=== PATIENT | male | born 1940 | race Caucasian/White ===

== ENCOUNTER 2018-03-31 08:55 | Inpatient (IN) ==
[2018-03-31] MEDS ORDERED: ASPIRIN PO ONE (09:25)
[2018-03-31] MEDS ORDERED: G.I. COCKTAIL PO ONE (09:25)
--- NOTE | 2018-03-31 09:31 | PROVIDER DOCUMENTATION ---
HPI-Chest Pain - General Chief Complaint: Nausea/Vomiting Stated Complaint: HEARTBURN/CHEST PAIN/COUGHING Time Seen by Provider: 03/31/18 09:13 Source: patient, family Allergies/Adverse Reactions: Patient Allergies Allergy/AdvReac Type Severity Reaction Status Date / Time ciprofloxacin [From Cipro] Allergy Unknown Verified 03/31/18 10:16 Latex, Natural Rubber Allergy Unknown Verified 03/31/18 10:16 promethazine [From Phenergan] Allergy Unknown Verified 03/31/18 10:16 - History of Present Illness-CP Nature of Presenting Problem: This pt presents today c complaints of atypical chest pains that began this morning. He states that it feels like "very bad reflux." He reports that it began shortly after he woke up and his been getting persistently worse since that time. He reports that he keeps "spitting up acid". He states that he had a similar episode around 2 years and describes a story that sounds like he may have had an esophageal food bolus (reports symptoms started after eating some chicken) but reports that the pain is worse today. Denies any shortness of breath. No other issues or complaints. Denies any previous cardiac hx. Location: reports: substernal Chest Pain Radiation: reports: epigastric Quality of Pain: reports: burning Severity in ED: moderate Onset/Duration: 1-3 hours ago Timing: still present, getting worse Modifying Factors: improves with: vomiting ("acid burps") Associated Symptoms: reports: heartburn Nitro Today/Relief: no nitro taken today Aspirin Treatment Today: 325 mg x 1, provided by ED Similar Symptoms Previously?: Yes Recently Seen Here or By Another Healthcare Provider: No Review of Systems - Adult - REVIEW OF SYSTEMS - ADULT Constitutional: reports: no symptoms reported. denies: chills, fever Eyes: reports: no symptoms reported. denies: discharge, dry eyes Ears, Nose, Mouth & Throat: reports: no symptoms reported. denies: ear discharge, ear pain Cardiovascular: reports: chest pain Respiratory: reports: no symptoms reported. denies: chronic cough, cough Gastrointestinal: reports: see HPI, abdominal pain (epigastric) Genitourinary: reports: no symptoms reported. denies: dysuria, discharge Musculoskeletal: reports: no symptoms reported. denies: bone pain, back pain Integumentary: reports: no symptoms reported. denies: hives, hair loss Neurological: reports: no symptoms reported. denies: ataxia, dizziness/vertigo Psychiatric: reports: no symptoms reported Endocrine: reports: no symptoms reported Hematologic/Lymphatic: reports: no symptoms reported Allergic/Immunologic: reports: no symptoms reported All Other Systems: Reviewed and Negative Past History - Adult - PAST MEDICAL HISTORY-ADULT Review of Records: reports: Old Records Reviewed, Nursing Assessment Review, Medications Reviewed, Social history reviewed & non-contributory. Major Childhood Illnesses: reports: denies history Cardiovascular: reports: HTN Respiratory: reports: denies history Gastrointestinal: reports: GERD Obstetrical/Gynecological: reports: denies history Genitourinary: reports: denies history Musculoskeletal: reports: denies history Neurological: reports: denies history Endocrine/Immune: reports: denies history Other Conditions: reports: denies history - IMMUNIZATION STATUS Childhood Immunizations: See Nurse Assessment Flu Vaccine: See Nurse Assessment - FAMILY HISTORY Family History: reviewed, not pertinent Physical Exam-General - PHYSICAL EXAM-ADULT Initial Vital Signs Reviewed: Yes - CONSTITUTIONAL General Appearance: alert, mild distress (discomfort) - EYES Eyes: PERRL/EOMI, pink conjunctivae - HEAD, EARS, NOSE, MOUTH & THROAT HENMT: normocephalic/atraumatic, moist mucous membranes, normal ENT inspection - NECK Neck: supple, normal inspection - RESPIRATORY Respiratory: chest non-tender, lungs clear, normal breath sounds, no pleuratic chest pain, no respiratory distress, no accessory muscle use. negative: respiratory distress, decreased breath sounds, accessory muscle use - CARDIOVASCULAR Cardiovascular: normal peripheral pulses, regular rate, rhythm. negative: bradycardia, tachycardia - GASTROINTESTINAL (ABDOMEN) Abdominal Exam: normal bowel sounds, non tender, soft, no organomegaly, no pulsatile mass. negative: distended, guarding, rigid, rebound, tenderness - LYMPHATIC Lymphatic: no adenopathy - MUSCULOSKELETAL Back Exam: normal inspection, no CVA tenderness, no vertebral tenderness Extremity: normal range of motion, non-tender - SKIN Integumentary: normal color, normal turgor, warm/dry - NEUROLOGIC Neurologic: grossly normal, no motor/sensory deficits. negative: facial droop, focal weakness, motor weakness, sensory deficit - PSYCHIATRIC Psych/Mental Status: normal mood/affect, normal thought content, normal thought process, oriented x 3 Progress - PLAN OF CARE/RESULTS Progress/Plan/Lab Results: Vital Signs - 8 hr 03/31/18 08:59 Temperature 97.6 F Pulse Rate 64 Respiratory Rate 18 Blood Pressure 153/75 O2 Sat by Pulse Oximetry 100 Laboratory Results - last 24 hr 03/31/18 03/31/18 03/31/18 09:03 09:03 09:03 WBC RBC Hgb Hct MCV MCH MCHC RDW Std Deviation Plt Count MPV Immature Gran % (Auto) Neut % (Auto) Lymph % (Auto) Glenn % (Auto) Eos % (Auto) Baso % (Auto) Immature Gran # (Auto) Neut # (Auto) Lymph # (Auto) Glenn # (Auto) Eos # (Auto) Baso # (Auto) PT 12.6 INR 0.87 PTT (Actin FS) 24.0 Sodium Potassium Chloride Carbon Dioxide Anion Gap BUN Creatinine Estimated GFR/1.73 m2 BUN/Creatinine Ratio Glucose Calculated Osmolality Calcium Total Bilirubin AST ALT Alkaline Phosphatase Creatine Kinase 272 H Creatine Kinase Index 2.1 CK-MB (CK-2) 5.67 H Troponin T < 0.010 Stj-M-Cuxhxqwoagq Pept Total Protein Albumin Globulin Albumin/Globulin Ratio Lipase 03/31/18 03/31/18 03/31/18 09:03 09:03 09:38 WBC 8.87 RBC 4.97 Hgb 15.1 Hct 45.0 MCV 90.5 MCH 30.4 MCHC 33.6 RDW Std Deviation 13.6 Plt Count 231 MPV 11.3 H Immature Gran % (Auto) 0.2 Neut % (Auto) 69.4 Lymph % (Auto) 15.2 L Glenn % (Auto) 8.8 Eos % (Auto) 5.4 Baso % (Auto) 1.0 H Immature Gran # (Auto) 0.02 Neut # (Auto) 6.15 Lymph # (Auto) 1.35 Glenn # (Auto) 0.78 H Eos # (Auto) 0.48 Baso # (Auto) 0.09 PT INR PTT (Actin FS) Sodium 145 Potassium 4.6 Chloride 112 H Carbon Dioxide 21 L Anion Gap 12 BUN 15 Creatinine 1.0 Estimated GFR/1.73 m2 > 60 BUN/Creatinine Ratio 15 Glucose 96 Calculated Osmolality 289 Calcium 8.5 L Total Bilirubin 0.35 AST 19 ALT 18 Alkaline Phosphatase 95 Creatine Kinase Creatine Kinase Index CK-MB (CK-2) Troponin T Dpf-X-Rlbvfnmwywa Pept 83 Total Protein 6.8 Albumin 4.4 Globulin 2.4 Albumin/Globulin Ratio 1.8 Lipase 31 Orders Category Date Time Status Saline Loc NOW Care 03/31/18 09:25 Active CHEST-2 VIEWS [RAD] Stat Exams 03/31/18 09:25 Completed BNP [PRO B-NATRIURETIC PEPTIDE] Stat Lab 03/31/18 09:38 Completed CBC WITH ELECTRONIC DIFF [HEME] Stat Lab 03/31/18 09:03 Completed CK PROFILE [SP CHEM] Stat Lab 03/31/18 09:03 Completed COMPREHENSIVE METABOLIC PANEL [CHEM] Stat Lab 03/31/18 09:03 Completed LIPASE [CHEM] Stat Lab 03/31/18 09:03 Completed PROTIME WITH INR [COAG] Stat Lab 03/31/18 09:03 Completed PTT [COAG] Stat Lab 03/31/18 09:03 Completed TROPONIN T Stat Lab 03/31/18 09:03 Completed 0.9% Sodium Chloride Inj [Ns] 1,000 ml Med 03/31/18 10:31 Active IV 999 mls/hr Aspirin Med 03/31/18 09:25 Discontinued 325 mg PO NOW ONE Lido/Rodriguez Alk/Al&mg Hydrox [G.i. Cocktail] Med 03/31/18 09:25 Discontinued 30 ml PO NOW ONE Pantoprazole [Protonix] Med 03/31/18 10:31 Discontinued 40 mg IV NOW ONE Sodium Chloride 0.9% Med 03/31/18 10:31 Discontinued 10 ml INJ NOW ONE Sucralfate [Carafate] Med 03/31/18 10:31 Discontinued 1 gm PO NOW ONE EKG [EKG] Stat Ther 03/31/18 09:[address] Ramirez at the bedside c pt and myself. Would like for me to discuss case c GI once labs have returned and then call him back. Result Diagrams: 03/31/18 09:03 03/31/18 09:03 - XRAY 1 XRAY Study: Chest XRAY Interpretation: nad - CONSULTS/PCP/HOSPITALIST Notification #1 *Consult/PCP/Hospitalist*: Dr. Herman Time Discussed: 10:38 Consult Disposition: other (Would like to admit to PCP, Protonix, Carafate and clear liquid diet for 24 hours. Possible EGD tomorrow.) Departure - Departure Date of Disposition Decision: 03/31/18 Time of Disposition Decision: 11:10 DIAGNOSIS: Atypical chest pain Acid reflux Qualifiers: Esophagitis presence: esophagitis presence not specified Qualified Code(s): K21.9 - Gastro-esophageal reflux disease without esophagitis Disposition: ADMITTED INPATIENT 09 Certified Medical Emergency: Emergent Condition: Stable Referrals and Follow-Ups: Clifford Ramos MD [Primary Care Provider] - - Critical Care Note This patient required my direct & personal management of CC.: No Attestation - Physician/ ZEV Attestation Patient care was provided by Advanced Practice Provider:: Yes Advanced Practice Provider:: Braulio Villagomez Advanced Practice Provider documentation review:: The Mid-level provider documentation, treatment plan and medical decision making was reviewed by the physician who agrees with all treatment and medical decision making by the MLP. The physician spent face to face time with patient:: No Advanced Practice Provider documentation review:: Supervising physician onsite and consulted in the evaluation and care of this patient. The physician did not have a face to face encounter with the patient.
[2018-03-31 09:46] LABS: BASO# 0.09 X1000 (0.0-0.2); IMM GRAN# 0.02 X1000 (0.0-0.04); IMM GRAN% 0.2 % (0.0-0.5)
[2018-03-31 09:53] LABS: INR 0.87; PROTIME 12.6 Seconds (11.0-16.0)
--- NOTE | 2018-03-31 10:05 | Diag Imaging Result Doc PS360 ---
CHEST-2 VIEWS - 03/31/2018 INDICATION: CP COMPARISON: None FINDINGS: The lungs are clear of infiltrate. There is some minimal linear scarring or atelectasis in the costophrenic angles bilaterally. There is a small calcified granuloma in the right lung apex. Heart size and pulmonary vascularity is normal. IMPRESSION: No acute process. Electronically signed by Mino Menjivar 03/31/2018 10:03 AM
[2018-03-31 10:07] LABS: EOS# 0.48 X1000 (0.0-0.7); EOS% 5.4 % (0.0-10.0); HEMOGLOBIN 15.1 g/dL (14.0-18.0); LYMPH# 1.35 X1000 (1.2-3.4); LYMPH% 15.2 % (20.5-51.1); MCH 30.4 PG (27-31); MCHC 33.6 g/dL (33-37); MCV 90.5 FL (81-99); MONO# 0.78 X1000 (0.11-0.59); MONO% 8.8 % (1.7-9.3); MPV 11.3 FL (7.4-10.4); NEUT# 6.15 X1000 (1.4-6.5); NEUT% 69.4 % (42.2-75.2); PLT 231 X1000 (130-400); RBC 4.97 XMIL (4.7-6.1); RDW 13.6 % (11.5-14.5); WBC 8.87 X1000 (4.8-10.8)
[2018-03-31 10:09] LABS: AGAP 12; ALB/GLOB RATIO 1.8; ALBUMIN 4.4 g/dL (3.5-5.0); ALKALINE PHOSPHATASE 95 U/L (32-122); BUN 15 mg/dL (8-22); CALCIUM 8.5 mg/dL (8.8-10.2); CHLORIDE 112 mmol/L (98-107); COSMO 289; ESTIMATED GFR > 60; GLUCOSE 96 mg/dL (70-104); GOT 19 U/L (10-34); GPT 18 U/L (10-44); LIPASE 31 U/L (13-60); POTASSIUM 4.6 mmol/L (3.5-5.1); SODIUM 145 mmol/L (136-145); TCO2 21 mmol/L (25-35); TOTAL BILIRUBIN 0.35 mg/dL (0.20-1.00); TOTAL PROTEIN 6.8 g/dL (6.3-8.3)
[2018-03-31 10:23] LABS: CK INDEX 2.1 (0.0-2.5); CK-MB 5.67 ng/mL (0.0-5.0)
[2018-03-31] MEDS ORDERED: PROTONIX IV ONE (10:31)
[2018-03-31] MEDS ORDERED: SODIUM CHLORIDE 0.9% INJ ONE (10:31)
[2018-03-31] MEDS ORDERED: CARAFATE PO ONE (10:31)
[2018-03-31] MEDS ORDERED: NS 1,000 ML IV ONE (10:31)
[2018-03-31] MEDS ORDERED: ZOFRAN IV PRN (11:10)
[2018-03-31] MEDS ORDERED: SODIUM CHLORIDE 0.9% INJ SCH (11:15)
[2018-03-31] MEDS: PROTONIX IV SCH ×2 (11:15→20:59)
[2018-03-31] MEDS: NS 1,000 ML IV ONE ×2 (12:00→14:20)
--- NOTE | 2018-03-31 12:09 | ED EKG INTERP ---
This chart was entered by Nallely Queen Scribe, acting as scribe for Gentry Gutierres MD. EKG Interpretation - EKG Time of EKG reading by physician:: 09:06 EKG Read and Signed by:: Gentry Gutierres EKG Interpretation (*Must complete 3 of following elements*): Abnormal Rate: 67 Rhythm: NSR w/ sinus arrhythmia [place]: normal QRS: other (L anterior fascicular block; septal infarct) MA Interval: normal ST Wave: normal Comments: No STEMI. -Dr. Gutierres Attestation - Physician/ ZEV Attestation Patient care was provided by Advanced Practice Provider:: Yes Advanced Practice Provider:: Braulio Villagomez Advanced Practice Provider documentation review:: The Mid-level provider documentation, treatment plan and medical decision making was reviewed by the physician who agrees with all treatment and medical decision making by the MLP. The physician spent face to face time with patient:: No Advanced Practice Provider documentation review:: Supervising physician onsite and consulted in the evaluation and care of this patient. The physician did not have a face to face encounter with the patient. This chart was documented by the indicated scribe, (Nallely Queen Scribe) and accurately reflects the services I performed and decisions made by me, Gentry Gutierres MD, as attested by the provider's signature.
[2018-03-31] MEDS: REGLAN IV SCH ×2 (14:37→21:00)
--- NOTE | 2018-03-31 15:53 | HISTORY AND PHYSICAL ---
CHIEF COMPLAINT: Chest pain. HISTORY OF PRESENT ILLNESS: This 77-year-old white male stated that he woke up this morning at 6 a.m. and was stirring about the kitchen when he had onset of chest pain. He pointed to exactly where the chest pain was. It was midline about in the middle of the sternum. He stated that it was a dull pain and he vomited. Although he did not say that it hurt to swallow, he was afraid to swallow anything and at the time of my interview and examination, the patient was leaning over the bed, spitting all of his oral contents into a garbage can because he was afraid to swallow his own saliva. The patient had a history of a similar occurrence a couple of years ago, which he could not confirm completely but it sounded as if he had a food bolus stuck in his esophagus. His usual GI is Dr. Drummond. The patient did not have any unusual foods the previous night. He had a chopped steak and did not have any incidence of pain with swallowing or sensation of anything lodging in his chest. He did take his nighttime medications last night of which there are approximately 3 pills. He also took 2 anti-gas tablets which were very large because he had been bothered with that at night. Again, he had no symptoms of pain with swallowing. With the onset of pain this morning at 6 a.m. he did not really have any palpitations. He was not short of breath. He did not have any diaphoresis. PAST MEDICAL HISTORY: 1. Hypertension. 2. Degenerative arthritis. 3. Allergic rhinitis. 4. Hypercholesterolemia. PAST SURGICAL HISTORY: The patient had a repair of a left lower abdominal incisional hernia in 2014. The other surgical history was not obtained. SOCIAL HISTORY: The patient lives by himself. He is a nonsmoker, nonuser of alcohol. REVIEW OF SYSTEMS: The patient denies any fever or chills. His weight has been stable. He denies any cough, wheezing or shortness of breath prior to onset of symptoms. He denies anything that sounded like an aspiration event from when he vomited. He denied any palpitations or heart racing sensation. He did not really have any abdominal pain to speak of. He pointed to his sternum as the location of the pain. He denies any genitourinary complaints. He has diffuse degenerative arthritis for which he takes medication but this has been stable for years. From a neuro psych standpoint, the patient denied any focal weakness and no problems with his mood, affect or sleep patterns. The patient states that this morning prior to vomiting, he had several "acid tasting belches." His bowels have been working normally and are normal coloration. PHYSICAL EXAMINATION: GENERAL: He is a well-developed, well-nourished white male who is not in any acute distress but he is leaning over the bed spitting his saliva into a garbage can. He has an emesis bag there but has not thrown up since arriving to the hospital that I am aware of. ENT: The sclerae are anicteric. Oral mucosa is adequately hydrated and of normal coloration. NECK: Unremarkable. LUNGS: Have some faint dry crackles in the left base. There is no wheezing. He has good air movement. CARDIOVASCULAR: Reveals a regular rhythm without appreciable murmur or gallop. He is not tachycardic. ABDOMEN: Shows bowel sounds are present. EXTREMITIES: Show no peripheral edema. NEUROLOGIC: The patient appears to be intact as his speech is clear and he moves his hands and feet without difficulty. PSYCHIATRIC: The patient's mood and affect are normal. LABORATORY: White cell count 8.8, hemoglobin 15, platelet count 231,000. INR is normal. CO2 slightly low at 21. BUN and creatinine are normal. CK was 272 with an MB fraction of 5.6. His troponin was undetectable. ProBNP was normal. ASSESSMENT AND PLAN: 1. I had hoped that could get EGD to check his esophagus right off the bat. We consulted Dr. Herman who agreed to see the patient in the hospital on inpatient basis. We will continue with stomach protective medications and IV fluid support as well as p.r.n.s for nausea or other difficulty. 2. I plan to recheck CK and troponin in the morning. It would seem unlikely that he would have this elevation in CK in the absence of a troponin if indeed this was a manifestation of heart disease. The highest likelihood is that we are dealing with some type of esophageal problem either a stricture, a impacted food bolus or possibly even some damage to the esophagus from pill eroding the mucosa. 3. The patient's blood pressure is stable and if we indeed are going to undertake an EGD tomorrow or even this afternoon, I want to keep him on clear liquids with no other irritants such as capsules or pills. I will add p.r.n. IV blood pressure medication should the patient require it. 4. All this was explained to the patient in the emergency room in the presence of family members and they were in agreement with proceeding in this fashion. cc: Teo Ramirez MD
[2018-03-31] MEDS: CARAFATE PO SCH ×2 (18:01→20:59)
--- NOTE | 2018-03-31 18:37 | GASTROENTEROLOGY CONSULTATION ---
DATE: 03/31/2018 ATTENDING PHYSICIAN: Dr. Ramirez. PRIMARY CARE DOCTOR: Dr. Clifford Ramos. PRIMARY MEDIA CLERK: Dr. Drummond. REASON FOR CONSULT: Reflux disease. HISTORY OF PRESENT ILLNESS: Mr. Simon is a 77-year-old male who was admitted on 03/31/2018 for symptoms of chest pain. He complains of burning in the middle of the sternum along with burping, belching. He has also been spitting/vomiting all his oral contents in a garbage can. He has some trouble swallowing as well as some odynophagia. He has never had an EGD done in the past. He has had a colonoscopy done by Dr. Drummond a few years ago. The patient was admitted for further workup. Gastroenterology scheduled for EGD. PAST MEDICAL HISTORY: Reflux disease, hypertension, degenerate arthritis, allergic rhinitis, hyperlipidemia and question of food impaction. PAST SURGICAL HISTORY: Repair of left lower abdominal incisional hernia in 2014 , colonoscopy. SOCIAL HISTORY: He lives by himself. He is a nonsmoker. He drinks 2 alcoholic beverages every night. He prefers [employer]. He denies any illicit drug abuse. REVIEW OF SYSTEMS: Denies any fevers, rigors or chills. Does complain of chest discomfort, but more so like burning sensation. He also complains of odynophagia, dysphagia to food and pills. He complains of some discomfort in the epigastric region and lower chest area. He denies any blood in the stools or vomiting blood. He does have arthritis. He denies any neurologic complaints. MEDICATIONS IN THE HOSPITAL: Include: Reglan, normal saline at 70 mL/h, Zofran , Protonix, Debbie Colace, Carafate. Given 1 dose of aspirin. He is on clear liquid diet. ALLERGIES: Ciprofloxacin, natural rubber, latex and promethazine. PHYSICAL EXAMINATION: Vital Signs: Temperature of 97.9, pulse of 59, respiratory rate of 18, blood pressure of 145/72, satting 99% on room air. Body weight of 177 pounds 11.2 ounces. BMI 27 kg/m2. General: Moderately nourished, lying in bed, in no acute distress. HEENT: No pallor. No icterus. Pupils equal, reactive to light. Neck: Supple. Abdomen: Discomfort in the epigastrium. No rebound or guarding. Extremities: No cyanosis, clubbing, edema. Neurologic: Neuro-montalvo he is alert, awake, oriented. LABS: Hemoglobin and hematocrit 15.1 and 45, white count of 8.8, platelet count of 231,000, MCV of 90.5. INR of 0.87, PT of 12.6, PTT of 24. Sodium 140, potassium 4.6, chloride 112, bicarb of 21, anion gap 12, BUN 15, creatinine 1, glucose of 96, calcium 8.5, total bilirubin is 0.35, AST 19, ALT 18, alkaline phosphatase 95, total protein is 6.8, albumin of 4.4, lipase of 31. Troponins less than 0.01 and CK is 272, calcium is 8.5, total bilirubin is 0.35. IMAGING: Chest x-ray was done which showed no acute process. IMPRESSION AND PLAN: 1. Atypical chest pain. 2. Odynophagia/dysphagia. 3. Reflux disease. 4. Belching, burping. 5. Vomiting. RECOMMENDATIONS: 1. We will give the patient Protonix twice daily. We will give him Carafate 1 g 6 hours. Keep on clear liquid diet. We will avoid any excessive tea, coffee, soda, tomatoes, any spicy foods. 2. Will schedule him for EGD tomorrow with Dr. Drummond. The risks, benefits, indications, alternatives of the procedure were discussed the patient. All questions answered. 3. We will start on bowel regimen with Debbie-Colace. 4. Above plan discussed with the patient and family and all questions were answered. Please call us with any further questions. cc: MD Lorelei Ritter MD Timothy P. Weirich, MD MTDD
[2018-03-31] MEDS: PERICOLACE PO SCH (21:06)
[2018-04-01] MEDS: REGLAN IV SCH ×2 (05:35→12:23)
[2018-04-01] MEDS: CARAFATE PO SCH ×3 (06:21→16:40)
--- NOTE | 2018-04-01 07:05 | EKG Report ---
Test Performed on : 04/01/2018 06:50:42 AM Test Reason : Chest pain Blood Pressure : / mmHG Vent. Rate : 061 BPM Atrial Rate : 061 BPM P-R Int : 190 ms QRS Dur : 102 ms QT Int : 430 ms P-R-T Axes : 052 -73 057 degrees QTc Int : 432 ms Normal sinus rhythm. Incomplete right bundle branch block Left anterior fascicular block Septal infarct , age undetermined Abnormal ECG No previous ECGs available Confirmed by Teo Ramirez MD ([id number]) on 04/01/2018 8:54:16 AM
[2018-04-01 07:32] VITALS: BP 114/58
[2018-04-01 08:24] LABS: CK INDEX 1.6 (0.0-2.5); CK-MB 4.03 ng/mL (0.0-5.0)
[2018-04-01] MEDS ORDERED: XYLOCAINE-MPF 2% ONE (11:42)
[2018-04-01] MEDS ORDERED: DIPRIVAN 1% ONE (11:42)
[2018-04-01] MEDS: PERICOLACE PO SCH (12:31)
--- NOTE | 2018-04-01 12:38 | OPERATIVE NOTE ---
PROCEDURE DATE: 04/01/2018 PROCEDURE: 1. Esophagogastroduodenoscopy. 2. Esophageal dilation and biopsy. MEDICATIONS: Used MAC as per Anesthesia. INSTRUMENTS: Scope used: Pentax gastroscope. PREOPERATIVE DIAGNOSIS: Atypical chest pain. POSTOPERATIVE DIAGNOSES: 1. Esophagitis. 2. Esophageal rings. 3. Gastric polyp. HISTORY: This is a 77-year-old gentleman, patient of mine admitted to hospital with atypical chest pain. Cardiac workup was negative. EGD was done to identify the etiology and treat accordingly. INFORMED CONSENT: Obtained from the patient. The procedure, risks, benefits, alternatives were explained in layman's terms. He understood. All his pertinent questions were answered. DESCRIPTION OF PROCEDURE: The patient was brought to the endoscopy unit and was premedicated as per Anesthesia. After adequate sedation, while he was lying in left lateral position, the gastroscope was introduced into the posterior pharynx and advanced under direct vision into the esophagus. Esophagus in the upper middle part was normal. Distal esophagus showed evidence of 2 esophageal rings, one was at about 38 cm from the incisor and the second one was at 40 cm from the incisor. The first ring had some erosion at the edges. The second one appeared to be typical Schatzki's ring. It was patent and the scope could be easily passed through the ring. The size of the ring appeared to be from 12 to 14 mm. There was no varices noted. Scope was passed through the esophagus into the stomach. Stomach was examined both in straight and retroflexed view, which revealed normal cardia, fundus, and body. However, a small polyp was seen, which was sessile, smooth surface which was about 3 to 4 mm in size. Polypectomy was performed using cold biopsy forceps. Otherwise, no ulcer, AVM, or masses were seen. Scope was then passed through the normal pylorus, into the duodenal bulb, and then the second portion of the duodenum which appeared to be normal. The scope was withdrawn back in the esophagus where the distal esophageal ring was dilated using a TTS balloon up to 20 mm in size for 60 seconds. There was small mucosal rent noted, a small heme noted. I did not dilate the proximal ring because of the esophagitis associated with it. The scope was then removed. Patient tolerated the procedure well. No complications noted. Patient was then transferred to the recovery area in a stable condition. IMPRESSION: 1. Esophageal rings. 2. Esophagitis. 3. Gastric polypectomy performed. 4. Esophageal ring dilated. RECOMMENDATION: I would continue him on proton pump inhibitor and Carafate for now. Follow up the biopsy report. Follow up with me in the office and depending on his progress, further plans will be made. He may need further dilation if this dilation did not completely resolve his symptoms. Advised him to avoid NSAID as well as Celebrex if possible and resume his regular diet and regular medication. cc: MD Teo Lewis MD Scott A. Matthews, MD
--- NOTE | 2018-04-01 21:04 | DISCHARGE SUMMARY ---
ADMISSION DATE: 03/31/2018 DISCHARGE DATE: 04/01/2018 ADMISSION DIAGNOSIS: Chest pain. DISCHARGE DIAGNOSES: 1. Chest pain, likely secondary to esophageal ulceration, presumed pill-induced esophagitis. 2. Esophageal rings x2. 3. Hypertension, present on arrival. 4. Hyperlipidemia, present on arrival. CONSULTATIONS: Dr. Drummond with gastroenterology was consulted for further evaluation and management of chest discomfort, GI in origin. PROCEDURES: 1. Chest x-ray was performed on 03/31/2018 which revealed no acute process. 2. EGD was performed on 04/01/2018 which revealed esophageal rings, esophagitis likely secondary to a pill induced event, and gastric polyps. CONSULTATIONS: Dr. Bandar Herman and Dr. Drummond with gastroenterology were consulted for further evaluation and management of probable GI origin pain. HISTORY AND PHYSICAL EXAMINATION: See admit note. PHYSICAL EXAMINATION PRIOR TO DISCHARGE: Temperature 97.8 degrees, heart rate 60, respirations 19, blood pressure is 114/58. General: Well nourished, well developed, no acute distress. Cardiovascular: Regular rate and rhythm. No significant murmurs, rubs, or gallops. Pulmonary: Clear to auscultation bilaterally. Abdomen: Soft, nontender, nondistended. Positive bowel sounds. Extremities: Moves all extremities well. No significant clubbing, cyanosis, or edema. Dermatologic: Evaluation reveals no evidence of rash. LABORATORY DATA: Prior to discharge: None. HOSPITAL COURSE: Patient was admitted as per history and physical examination. Hospital course per condition: 1. Atypical chest pain, likely secondary to pill induced esophagitis-upon admission, patient was noted to have considerable chest discomfort. Full cardiac evaluation was pursued. CK level was slightly elevated. Troponin was noted to be within normal limits. EKG demonstrated no evidence of acute disease. The patient was provided a GI cocktail. With this, symptoms improved considerably. The patient was placed on a proton pump inhibitor as well as Carafate. Gastroenterology was consulted. EGD was performed on the day of discharge. EGD suggested 2 esophageal rings, 1 with irritation, likely secondary to previous medication/pill induced. There was no evidence of active bleeding. Patient will be discharged home on omeprazole daily and Carafate 4 times daily with meals. Follow up with Dr. Drummond will be arranged. 2. Esophageal ring/Schatzki ring-patient was treated with dilation of 1 of the 2 rings. The other was not dilated secondary to the ulcerations. The patient will be followed closely as an outpatient and treated with optimum medical management. Should symptoms continue, we will consider repeat EGD with dilation in the future. 3. Gastric polyps-pulpectomy was performed during EGD. Patient tolerated this well. 4. Hypertension-patient was maintained on home medications while hospitalized. 5. Hyperlipidemia-patient was continued on simvastatin therapy. DISCHARGE CONDITION: Good. DISPOSITION: Discharged to home. MEDICATIONS: 1. Carafate 1 g daily with meals and at bedtime. 2. Losartan 50 mg twice daily. 3. Singulair 10 mg daily. 4. Mel-D daily. 5. Omeprazole 40 mg daily. 6. Acetaminophen 2 tablets twice daily as needed. 7. Amlodipine 2.5 mg twice daily. 8. Sildenafil 20 mg as directed. 9. Simvastatin 20 mg at bedtime. 10. Patient has been instructed to discontinue Celebrex. FOLLOWUP: The patient is to follow up with me in approximately 1 to 2 weeks. Patient is to follow up with Dr. Drummond as arranged. cc: MD Teo Ritter MD
[2018-04-02] MEDS ORDERED: PRILOSEC PO SCH (07:00)
--- NOTE | 2018-04-05 13:07 | EKG Report ---
Test Performed on : 03/31/2018 09:06:46 AM Test Reason : chest pain Blood Pressure : / mmHG Vent. Rate : 067 BPM Atrial Rate : 067 BPM P-R Int : 178 ms QRS Dur : 106 ms QT Int : 430 ms P-R-T Axes : 048 -65 039 degrees QTc Int : 454 ms Normal sinus rhythm. with sinus arrhythmia. Left anterior fascicular block Septal infarct , age undetermined Abnormal ECG No previous ECGs available Unconfirmed Result
== END 2018-04-01 17:00 | disposition home or self-care (01) | DRG 382 ==
LOC: ED 08:55 → 3N 11:29
PROVIDERS: ADMIT Internal Medicine; ATTEND Internal Medicine
CPT/HCPCS: 71020; 71046; 80053; 82550; 82553; 83690; 83880; 84484; 85025; 85610; 85730; 88305; 88312; 93005; 93010; 96374; 99285; A9270; C9113; J2765; J7030; S0164